=== PATIENT | male | born 1990 | race Caucasian/White ===

== ENCOUNTER 2021-07-16 21:29 | Emergency (ER) | payer SELFPAY ==
[~2021-07-16] VITALS: Ht 175.3 cm; Wt 79.4 kg
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
[2021-07-16] MEDS ORDERED: CT SWABBABLE VALVE TRANS SET 1 EA INFUS.SET MC ONE (22:47)
[2021-07-16] MEDS ORDERED: IOHEXOL-350 100 ML VIAL IV ONE (22:47)
[2021-07-16] MEDS ORDERED: IV NS 0.9% 250 ML IV ONE (22:47)
[2021-07-16] MEDS ORDERED: ONDANSETRON HCL/PF 4 MG/2 ML VIAL ONE (23:00)
[2021-07-16] MEDS ORDERED: MORPHINE SULFATE INJ 4 MG/ML DISP.SYRIN ONE (23:00)
[2021-07-16] MEDS: IV NS 0.9% 1,000 ML IV ONE (23:15)
[2021-07-16] MEDS: ONDANSETRON HCL/PF - ER 4 MG/2 ML VIAL IV ONE (23:16)
[2021-07-16] MEDS: MORPHINE SULFATE INJ 2 MG/ML DISP.SYRIN IV ONE (23:16)
--- NOTE | 2021-07-17 00:01 | NUR ---
[facility] CO[facility] AT PT'S BEDSIDE
[2021-07-17] MEDS ORDERED: KETOROLAC TROMETHAMINE 15 MG/ML VIAL ONE (00:14)
[2021-07-17] MEDS: KETOROLAC TROMETHAMINE INJ 30 MG/ML VIAL IV ONE (00:17)
[2021-07-17] MEDS ORDERED: IBUP-1958 PO (00:24)
[2021-07-17 00:29] VITALS: BP 133/80
--- NOTE | 2021-07-17 00:29 | NUR ---
Patient discharged to home in stable condition. Written and verbal after care instructions given. Patient verbalizes understanding of instruction.
[2021-07-17] MEDS ORDERED: CYCL5TAB PO (01:01)
== END 2021-07-17 00:29 | disposition home or self-care (01) ==
LOC: ER 21:35
DX: R07.89 Other chest pain (principal); Z88.8 Allergy status to other drugs, medicaments and biological substances; V43.52XA Car driver injured in collision with other type car in traffic accident, initial encounter; Y93.89 Activity, other specified; Y92.410 Unspecified street and highway as the place of occurrence of the external cause; Y99.8 Other external cause status
CPT/HCPCS: 71275; 74174; 96361; 96374; 96375 ×2; 99285; J1885; J2270; J2405 ×2; J7030; J7050; Q9967

== ENCOUNTER 2022-08-07 21:24 | Emergency (ER) | payer MEDICAID ==
[~2022-08-07] VITALS: Ht 188 cm; Wt 45.8 kg
[~2022-08-07 21:24] MED LIST: CYCL5TAB PO; IBUP-1958 PO
[2022-08-07] MEDS ORDERED: ONDANSETRON HCL/PF 4 MG/2 ML VIAL IV ONE (22:00)
[2022-08-07] MEDS ORDERED: MORPHINE SULFATE INJ 2 MG/ML DISP.SYRIN IV ONE (22:00)
[2022-08-07] MEDS ORDERED: IV NS 0.9% 1,000 ML BAG IV ONE (22:00)
--- NOTE | 2022-08-07 22:06 | NUR ---
C/O RUQ PAIN X2 HRS, N/V. TO BED 10. LAC#20 , LABS DRAWN
[2022-08-07] MEDS ORDERED: ONDANSETRON HCL/PF 4 MG/2 ML VIAL ONE (22:08)
[2022-08-07] MEDS ORDERED: MORPHINE SULFATE INJ 4 MG/ML DISP.SYRIN ONE (22:08)
[2022-08-07 22:13] LABS: BASOPHILS % (AUTO) 0.1 % (0.0-2.0); EOSINOPHILS % (AUTO) 0.3 % (0.0-6.0); HEMATOCRIT 50 % (39-51); HEMOGLOBIN 16.7 g/dL (13.5-17.5); LYMPHOCYTES # (AUTO) 1.3 K/uL (0.8-4.8); LYMPHOCYTES % (AUTO) 7.7 % (20.0-44.0); MEAN CORPUSCULAR HGB CONC 33 g/dl (31.0-36.0); MEAN CORPUSCULAR VOLUME 84 fL (80-96); MONOCYTES # (AUTO) 0.9 K/uL (0.1-1.30); NEUTROPHILS # (AUTO) 14.8 K/uL (1.8-8.9); NEUTROPHILS % (AUTO) 86.9 % (43.0-81.0); PLATELET COUNT (AUTO) 325 K/uL (150-450); RED BLOOD CELL COUNT(AUTO) 6.02 MIL/uL (4.5-6.0)
[2022-08-07 22:25] LABS: ALANINE AMINOTRANSFERASE 36 U/L (12-78); ALBUMIN 3.9 g/dL (3.4-5.0); ALKALINE PHOSPHATASE 89 U/L (46-116); ASPARTATE AMINOTRANSFERASE 39 U/L (15-37); BILIRUBIN,DIRECT 0.1 mg/dL (0.0-0.2); BILIRUBIN,TOTAL 0.4 mg/dL (0.2-1.0); CALCIUM, SERUM 8.8 mg/dL (8.5-10.1); CARBON DIOXIDE 25 mmol/L (21-32); CHLORIDE 107 mmol/L (98-107); CREATININE 1.4 mg/dL (0.6-1.3); GLUCOSE 113 mg/dL (74-106); POTASSIUM 3.5 mmol/L (3.5-5.1); SODIUM SERUM 140 mmol/L (136-145); TOTAL PROTEIN, SERUM 7.3 g/dL (6.4-8.2); UREA NITROGEN, BLOOD 23 mg/dL (7-18)
--- NOTE | 2022-08-07 22:49 | NUR ---
PT TAKEN TO CT VIA JAMIE
[2022-08-07 22:53] LABS: LIPASE > 1500 U/L (73-393)
--- NOTE | 2022-08-07 23:12 | NUR ---
COVID ANTIGEN SWAB COLLECTED AND SENT TO LAB
[2022-08-07] MEDS ORDERED: HYDROMORPHONE 1 MG/1 ML DISP.SYRIN ONE (23:28)
[2022-08-07] MEDS ORDERED: HYDROMORPHONE 1 MG/1 ML DISP.SYRIN IV ONE (23:30)
[2022-08-07] MEDS ORDERED: IV NS 0.9% 1,000 ML IV ONE (23:30)
--- NOTE | 2022-08-08 00:04 | NUR ---
patient c/o increase abd pain radiating to whole abdomen and back 03/20, MD aware.
[2022-08-08] MEDS ORDERED: HYDROMORPHONE 1 MG/1 ML DISP.SYRIN ONE ×7 (00:40→15:54)
[2022-08-08] MEDS ORDERED: HYDROMORPHONE 1 MG/1 ML DISP.SYRIN IV ONE ×5 (01:00→11:00)
--- NOTE | 2022-08-08 01:50 | NUR ---
informed Dr. Hernandez that patient continues to complain of pain in abd/back. received verbal order for toradol 15mg IVx1.
[2022-08-08] MEDS ORDERED: KETOROLAC TROMETHAMINE INJ 30 MG/ML VIAL IV ONE (02:00)
[2022-08-08] MEDS ORDERED: KETOROLAC TROMETHAMINE 15 MG/ML VIAL ONE (02:06)
--- NOTE | 2022-08-08 03:37 | NUR ---
informed Dr. Hernandez patient c/o pain and nausea. received order for diluaid 1 mg iv x1 and zofran 4mg iv x1.
[2022-08-08] MEDS ORDERED: ONDANSETRON HCL/PF 4 MG/2 ML VIAL ONE (03:39)
[2022-08-08] MEDS ORDERED: ONDANSETRON HCL/PF 4 MG/2 ML VIAL IV ONE (04:00)
--- NOTE | 2022-08-08 06:42 | NUR ---
PER DAWIT CM, BED AFTER CHANGE OF SHIFT
--- NOTE | 2022-08-08 08:10 | NUR ---
PT REMAINS IN BED, ASSESSED. PT REPORTING ABD PAIN AT THIS TIME. VSS
--- NOTE | 2022-08-08 08:35 | NUR ---
DR BANSAL MADE AWARE W/ ORDER FOR DILAUDID NOTED.
[2022-08-08] MEDS ORDERED: METH10TA4 PO (09:59)
[2022-08-08] MEDS ORDERED: BUPR-54 PO (09:59)
[2022-08-08] MEDS ORDERED: MIRT-91 PO (09:59)
[2022-08-08] MEDS ORDERED: LAMO100T17 PO (09:59)
--- NOTE | 2022-08-08 10:03 | NUR ---
DR. DUVAL SPEAKING WITH DR. BANSAL.
--- NOTE | 2022-08-08 10:24 | NUR ---
GOT BED 322-2 ADMITTING NOTIFIED.
--- NOTE | 2022-08-08 10:32 | NUR ---
REPORT GIVEN TO DARRELL GUNN
--- NOTE | 2022-08-08 10:51 | NUR ---
PER DR. DUVAL, PT WILL NEED TO BE TRANSFERRED TO ANOTHER FACILITY.
--- NOTE | 2022-08-08 11:20 | NUR ---
JING CALLED [phone] WILL REINITIATE TRANSFER.
[2022-08-08] MEDS ORDERED: IV NS 0.9% 1,000 ML IV ONE (11:30)
[2022-08-08] MEDS ORDERED: PIPERACILLIN /TAZOBACTAM 2.25 G in IV D5W 50 ML IV SCH (13:00)
[2022-08-08] MEDS: HYDROMORPHONE 1 MG/1 ML DISP.SYRIN IV SCH ×2 (13:55→15:55)
--- NOTE | 2022-08-08 14:45 | NUR ---
PT ACCEPTED AT [facility] UNDER MARIO FISH. M/S GOING TO [address] FOR NURSE TO NURSE [phone] AWAITING TRANSPORT ETA.
--- NOTE | 2022-08-08 14:59 | NUR ---
[facility] ETA 153
--- NOTE | 2022-08-08 15:07 | NUR ---
REPORT GIVEN TO EZEKIEL GUNN AT [facility]
--- NOTE | 2022-08-08 16:01 | NUR ---
PT DISCHARGED TO [facility], REPORT GIVEN, PT LEFT WITH EMT. IV INTACT AND LEFT IN PLACE
[2022-08-08 16:02] VITALS: BP 142/81
== END 2022-08-08 16:03 | disposition short-term general hospital (02) ==
LOC: ER 21:28 → MED 08-08 10:33 → UNDOADMIN 08-08 10:33 → ER 08-08 16:03
DX: K85.90 Acute pancreatitis without necrosis or infection, unspecified (principal); Z20.822 Contact with and (suspected) exposure to COVID-19; Z88.1 Allergy status to other antibiotic agents
CPT/HCPCS: 99285; 74176; 96375 ×2; 96361 ×2; 87426; 85025; 80048; 83690; 80076; 36415; 87081; 96365; 96376; J2270; J2405 ×2; J7030 ×2; J1170 ×8; C9803; J2543; J7060; J1885

== ENCOUNTER 2022-11-06 00:07 | Emergency (ER) | payer MEDICAID ==
[~2022-11-06] VITALS: Ht 188 cm; Wt 86.2 kg
[~2022-11-06 00:07] MED LIST changes: +BUPR-54 PO; -CYCL5TAB PO; -IBUP-1958 PO; +LAMO100T17 PO; +METH10TA4 PO; +MIRT-91 PO
[2022-11-06] MEDS ORDERED: MORPHINE SULFATE INJ 2 MG/ML DISP.SYRIN IV ONE ×2 (01:30→09:00)
[2022-11-06] MEDS ORDERED: IV NS 0.9% 1,000 ML BAG IV ONE (01:30)
[2022-11-06] MEDS ORDERED: ONDANSETRON HCL/PF 4 MG/2 ML VIAL IVP ONE (01:30)
--- NOTE | 2022-11-06 01:35 | NUR ---
BIBS FROM HOME CC OF ABDL PAIN SINCE AM, VOMITED 16X. DX WITH PANCREATITIS TOOK IBUPROFEN 800MG, FENTANYL 20MCG THIS AM
--- NOTE | 2022-11-06 01:50 | NUR ---
Skinny george in [facility] - 11/06/22 at 0225 by PHILIP IV STARTED ON R WRIST
--- NOTE | 2022-11-06 01:50 | NUR ---
20G IV STARTED ON R WRIST
[2022-11-06] MEDS ORDERED: ONDANSETRON HCL/PF 4 MG/2 ML VIAL ONE ×2 (02:00→08:49)
[2022-11-06] MEDS ORDERED: MORPHINE SULFATE INJ 4 MG/ML DISP.SYRIN ONE ×2 (02:00→08:49)
--- NOTE | 2022-11-06 02:01 | NUR ---
DR. PINEDA AT BEDSIDE
--- NOTE | 2022-11-06 02:15 | NUR ---
PT TAKEN TO CT
[2022-11-06 02:24] LABS: BASOPHILS % (AUTO) 0.1 % (0.0-2.0); HEMATOCRIT 47 % (39-51); HEMOGLOBIN 15.2 g/dL (13.5-17.5); LYMPHOCYTES # (AUTO) 0.5 K/uL (0.8-4.8); LYMPHOCYTES % (AUTO) 3.6 % (20.0-44.0); MEAN CORPUSCULAR HGB CONC 33 g/dl (31.0-36.0); MEAN CORPUSCULAR VOLUME 83 fL (80-96); MONOCYTES # (AUTO) 0.4 K/uL (0.1-1.30); NEUTROPHILS # (AUTO) 13.1 K/uL (1.8-8.9); NEUTROPHILS % (AUTO) 93.3 % (43.0-81.0); PLATELET COUNT (AUTO) 302 K/uL (150-450); WHITE BLOOD COUNT (AUTO) 14.1 K/uL (4.3-11.0)
--- NOTE | 2022-11-06 02:25 | NUR ---
PT BACK FROM CT
[2022-11-06 02:36] LABS: CALCIUM, SERUM 9.1 mg/dL (8.5-10.1); CREATININE 1.2 mg/dL (0.6-1.3); POTASSIUM 4.1 mmol/L (3.5-5.1)
[2022-11-06 02:43] LABS: ALBUMIN 4.1 g/dL (3.4-5.0); BILIRUBIN,DIRECT 0.2 mg/dL (0.0-0.2); BILIRUBIN,TOTAL 0.9 mg/dL (0.2-1.0); TOTAL PROTEIN, SERUM 7.2 g/dL (6.4-8.2)
--- NOTE | 2022-11-06 02:45 | NUR ---
IV REINSERTED ON L WRIST 20G
--- NOTE | 2022-11-06 03:04 | NUR ---
URINE COLLECTED AND SENT TO LAB
[2022-11-06 03:46] LABS: BILIRUBIN,URINE NEGATIVE (NEGATIVE); COLOR,URINE DARK YELLOW (YELLOW); LEUKOCYTE ESTERASE ,URINE NEGATIVE (NEGATIVE); NITRITE, URINE NEGATIVE (NEGATIVE); PH,URINE 5.5 (5.0-8.0); PROTEIN,URINE TRACE mg/dl (NEGATIVE); UGLUCOSE NEGATIVE (NEGATIVE); UROBILINOGEN,URINE 0.2 EU/dL (0.2)
[2022-11-06 03:47] LABS: BACTERIA,URINE Rare /HPF (None Seen); RBC,URINE 0-2 /HPF (0-2); SQUAMOUS EPITHELIAL CELL,UR Few /HPF (None Seen); WBC,URINE 0-2 /HPF (0-3)
[2022-11-06] MEDS ORDERED: HYDROMORPHONE 1 MG/1 ML DISP.SYRIN ONE (04:20)
[2022-11-06] MEDS ORDERED: HYDROMORPHONE 1 MG/1 ML DISP.SYRIN IV ONE (04:30)
--- NOTE | 2022-11-06 04:57 | NUR ---
16FR NG TUBE INSERTED 950mL GASTRIC OUTPUT
--- NOTE | 2022-11-06 05:41 | NUR ---
Per Lab, COVID test peding.
--- NOTE | 2022-11-06 05:45 | NUR ---
ADDITIONAL 250ML OUTPUT FROM NGT
--- NOTE | 2022-11-06 05:50 | NUR ---
PT REQUESTING NG TUBE BE REMOVED. DR. PINEDA AWARE AND WANTS TO KEEP IT IN. EDUCATED PT RISKS OF REMOVING NG TUBE.
--- NOTE | 2022-11-06 06:25 | NUR ---
EXPLAINED BENEFITS TO PATIENT OF REMOVING NG TUBE AND PT STILL REQUESTING TO REMOVE THE TUBE. NG TUBE REMOVED. DR. RUBI AWARE.
--- NOTE | 2022-11-06 08:31 | NUR ---
COVID TEST CONFIRM RECIEVING COVID TEST. WILL PRESENT TO [facility]. [place] NUMBER [phone]
[2022-11-06] MEDS ORDERED: ONDANSETRON HCL/PF - ER 4 MG/2 ML VIAL IV ONE (09:00)
--- NOTE | 2022-11-06 09:53 | NUR ---
JOSE RAFAEL FROM [facility] [phone]. PT ACCEPTED AT [facility] UNDER DR. NUÑEZ. STILL WAITING FOR A ROOM NUMBER. WILL CALL BACK WITH UPDATE
--- NOTE | 2022-11-06 10:03 | NUR ---
JOSE RAFAEL FROM [facility] [phone]. PT ACCEPTED AT [facility] UNDER DR. PHILLIPS. ROOM 301-B VANNA RN PLEASE CALL [phone]. WILL CALL BACK WITH TRANSPORT INFO.
--- NOTE | 2022-11-06 11:46 | NUR ---
REPORT GIVEN TO [facility] TRANSPORT.
--- NOTE | 2022-11-06 11:57 | NUR ---
REPORT GIVEN TO ANDREW RN, BED 301-B. [facility].
[2022-11-06 12:04] VITALS: BP 132/74
== END 2022-11-06 12:07 | disposition short-term general hospital (02) ==
LOC: ER 00:10
DX: K31.1 Adult hypertrophic pyloric stenosis (principal); Z98.890 Other specified postprocedural states; Z79.899 Other long term (current) drug therapy; Z60.2 Problems related to living alone; Z20.822 Contact with and (suspected) exposure to COVID-19; Z88.1 Allergy status to other antibiotic agents
CPT/HCPCS: 99285; 74176; 96374; 96375; 96361; 87426; 96376; 85025; 80048; 83690; 80076; 81001; 36415; 85730; 87081; J2270 ×2; J2405 ×3; J7030; J1170; C9803

== ENCOUNTER 2023-06-09 10:31 | Emergency (ER) | payer MEDICAID ==
[~2023-06-09] VITALS: Ht 188 cm; Wt 98.0 kg
[2023-06-09 11:03] VITALS: TEMP 98
[2023-06-09] MEDS ORDERED: ONDANSETRON HCL/PF 4 MG/2 ML VIAL ONE (11:24)
[2023-06-09 11:25] LABS: BASOPHILS # (AUTO) 0.1 K/uL (0.0-0.2); BASOPHILS % (AUTO) 0.6 % (0.0-2.0); EOSINOPHILS # (AUTO) 0.1 K/uL (0.0-0.7); EOSINOPHILS % (AUTO) 1.5 % (0.0-6.0); HEMATOCRIT 42 % (39-51); HEMOGLOBIN 14.2 g/dL (13.5-17.5); LYMPHOCYTES # (AUTO) 1.5 K/uL (0.8-4.8); MEAN CORPUSCULAR HEMOGLOBIN 28 PG (26.0-33.0); MEAN CORPUSCULAR HGB CONC 34 g/dl (31.0-36.0); MEAN CORPUSCULAR VOLUME 84 fL (80-96); MONOCYTES # (AUTO) 0.9 K/uL (0.1-1.30); MONOCYTES % (AUTO) 10.1 % (2.0-12.0); NEUTROPHILS # (AUTO) 6.7 K/uL (1.8-8.9); NEUTROPHILS % (AUTO) 71.8 % (43.0-81.0); PLATELET COUNT (AUTO) 299 K/uL (150-450); RED BLOOD CELL COUNT(AUTO) 5.01 MIL/uL (4.5-6.0); RED CELL DISTRIBUTION WIDTH 13.4 % (11.5-15.0); WHITE BLOOD COUNT (AUTO) 9.3 K/uL (4.3-11.0)
[2023-06-09] MEDS ORDERED: IV NS 0.9% 1,000 ML BAG IV ONE (11:30)
[2023-06-09] MEDS ORDERED: ONDANSETRON HCL/PF - ER 4 MG/2 ML VIAL IV ONE (11:30)
[2023-06-09 11:31] LABS: ALANINE AMINOTRANSFERASE 134 U/L (12-78); ALBUMIN 3.9 g/dL (3.4-5.0); ALKALINE PHOSPHATASE 85 U/L (46-116); ASPARTATE AMINOTRANSFERASE 138 U/L (15-37); BILIRUBIN,DIRECT 0.1 mg/dL (0.0-0.2); BILIRUBIN,TOTAL 0.4 mg/dL (0.2-1.0); CALCIUM, SERUM 9.6 mg/dL (8.5-10.1); CARBON DIOXIDE 29 mmol/L (21-32); CHLORIDE 100 mmol/L (98-107); CREATININE 1.4 mg/dL (0.6-1.3); GLUCOSE 94 mg/dL (74-106); POTASSIUM 4.1 mmol/L (3.5-5.1); SODIUM SERUM 134 mmol/L (136-145); TOTAL PROTEIN, SERUM 7.8 g/dL (6.4-8.2); UREA NITROGEN, BLOOD 13 mg/dL (7-18)
[2023-06-09 11:33] LABS: ACETAMINOPHEN <10 ug/ml (10-30); ALCOHOL, BLOOD < 3 mg/dL (0-10); SALICYLATE 1.1 mg/dL (2.8-20.0)
[2023-06-09 11:35] LABS: APPEARANCE,URINE CLEAR (CLEAR); BILIRUBIN,URINE NEGATIVE (NEGATIVE); BLOOD, URINE TRACE-INTA Ery/uL (NEGATIVE); COLOR,URINE YELLOW (YELLOW); KETONES,URINE NEGATIVE (NEGATIVE); LEUKOCYTE ESTERASE ,URINE NEGATIVE (NEGATIVE); NITRITE, URINE NEGATIVE (NEGATIVE); PROTEIN,URINE NEGATIVE (NEGATIVE); UGLUCOSE NEGATIVE (NEGATIVE); UROBILINOGEN,URINE 0.2 EU/dL (0.2)
[2023-06-09 11:50] LABS: AMPHETAMINE, URINE NEGATIVE (NEGATIVE); BARBITURATE, URINE NEGATIVE (NEGATIVE); BENZODIAZEPINE, URINE NEGATIVE (NEGATIVE); CANNABINOID, URINE NEGATIVE (NEGATIVE); COCCAINE, URINE NEGATIVE (NEGATIVE); OPIATE, URINE NEGATIVE (NEGATIVE); PHENCYCLIDINE SCREEN,URINE NEGATIVE (NEGATIVE)
[2023-06-09 11:57] LABS: ADD URINE CULTURE NO; BACTERIA,URINE None seen /HPF (None Seen); RBC,URINE 0-2 /HPF (0-2); SQUAMOUS EPITHELIAL CELL,UR Rare /HPF (None Seen); WBC,URINE 0-2 /HPF (0-3)
[2023-06-09 17:28] VITALS: BP 132/84; O2SAT 99
== END 2023-06-09 15:25 | disposition home or self-care (01) ==
LOC: ER 10:37
DX: T40.411A Poisoning by fentanyl or fentanyl analogs, accidental (unintentional), initial encounter (principal); Z79.899 Other long term (current) drug therapy; Z98.890 Other specified postprocedural states; Z60.2 Problems related to living alone; Z88.1 Allergy status to other antibiotic agents; Y92.89 Other specified places as the place of occurrence of the external cause
CPT/HCPCS: 99283; 96374; 96361; 85025; 80048; 80076; 81001; 36415; 80143; 80320; 80307; J2405; J7030; A4223; G0480